=== PATIENT | female | born 1975 | race Caucasian/White ===

== ENCOUNTER → 2017-02-08 | Outpatient (CLI) | payer BC ==
[~2017-02-08] MED LIST: /ONDA4TA OR; /PANT40TA OR; /SUCR1TA PO; ACET65TA OR; ACTIVITY; B12 PO; CALC500T49 OR; CELE40TA PO; COLA100C2 OR; DILA2TAB OR; DULCOLAX PR; FERR325T OR; HYDR-3363 PO; IBUP600T OR; LEXA1TAB PO; MECL25TA2 OR; METH750T OR; MULTIVIT PO; STOOL SOFTENER; TRAZ50TA11 PO; VENL100T OR; VICO5TAB OR; VICODIN PO; XIFAXAN PO; ZOFRAN; [UNRECOGNIZED DRUG - CODE]; [UNRECOGNIZED DRUG - CODE] PO; [UNRECOGNIZED DRUG - OTHER]; calcium citrate PO; dulcolax PO; prilosec
--- NOTE | 2017-02-08 12:38 | REP ---
Clinical: Trauma. Technique: Felix and bilateral lateral views of the nasal bones. Findings: Nasal septum is midline. Nasal bones appear intact without acute fracture or dislocation. Overlying soft tissues are grossly unremarkable. Impression: No acute nasal bone fracture identified. Signed by Jhoan Beckham MD 02/08/2017 12:29 P
== END ==
LOC: M WUC 12:08
PROVIDERS: ATTEND Physician Assistant
DX: S00.33XA Contusion of nose, initial encounter (principal); X58.XXXA Exposure to other specified factors, initial encounter; Y92.9 Unspecified place or not applicable; Y93.9 Activity, unspecified; Y99.9 Unspecified external cause status